=== PATIENT | female | born 1995 ===

== ENCOUNTER 2018-05-27 20:49 | Emergency (ER) | payer OTHER ==
[2018-05-27 21:06] VITALS: RESP 18; TEMP 98.3
--- NOTE | 2018-05-27 22:21 | ED PDOC ---
HPI: Chest Pain Time Seen by Provider: 05/27/18 22:16 Chief Complaint (Nursing): Chest Pain Chief Complaint (Provider): chest pain History Per: Patient History/Exam Limitations: no limitations Onset/Duration Of Symptoms: Days (2), Waxing/Waning Current Symptoms Are (Timing): Still Present Quality: "Pain", Other (pinching) Additional Complaint(s): 22 y/o female presents for evaluation of intermittent chest pain x 2 days. Patient describes pain in midsternal to left chest area, "pinching" when present. Denies fever, cough, congestion, nausea/vomiting, shortness of breath , palpitations, abdominal pain, recent travel, leg pain/swelling, OCP use. Past Medical History Reviewed: Historical Data, Nursing Documentation, Vital Signs Vital Signs: Last Vital Signs Temp 98.3 F 05/27/18 21:05 Pulse 82 05/27/18 21:05 Resp 18 05/27/18 21:05 BP 116/70 05/27/18 21:05 Pulse Ox 100 05/27/18 22:22 - Medical History PMH: No Chronic Diseases - Surgical History Surgical History: Appendectomy - Family History Family History: States: No Known Family Hx - Social History Current smoker - smoking cessation education provided: No Alcohol: None Drugs: Denies - Allergies Allergies/Adverse Reactions: Allergies Allergy/AdvReac Type Severity Reaction Status Date / Time No Known Allergies Allergy Verified 05/27/18 21:04 Review of Systems ROS Statement: Except As Marked, All Systems Reviewed And Found Negative Cardiovascular: Positive for: Chest Pain Physical Exam - Reviewed Nursing Documentation Reviewed: Yes Vital Signs Reviewed: Yes - Physical Exam Appears: Positive for: Well, Non-toxic, No Acute Distress Head Exam: Positive for: ATRAUMATIC, NORMAL INSPECTION, NORMOCEPHALIC Skin: Positive for: Normal Color Eye Exam: Positive for: Normal appearance ENT: Positive for: Normal ENT Inspection Cardiovascular/Chest: Positive for: Regular Rate, Rhythm. Negative for: Chest Non Tender (tender to palpate left anterior chest wall; no edema, ecchymosis, crepitus noted) Respiratory: Positive for: Normal Breath Sounds Gastrointestinal/Abdominal: Positive for: Normal Exam Back: Positive for: Normal Inspection Extremity: Positive for: Normal ROM Neurologic/Psych: Positive for: Alert, Oriented - Laboratory Results Result Diagrams: 05/27/18 23:43 05/27/18 23:43 - ECG ECG: Positive for: Viewed By Me (reviewed by ED attending) ECG Rhythm: Positive for: Sinus Rhythm O2 Sat by Pulse Oximetry: 100 - Radiology X-Ray: Viewed By Me X-Ray Interpretation: No Acute Disease - Progress ED Course And Treament: labs, ekg, chest xray, IV toradol On re-eval, patient resting comfortably; states she is feeling better Patient educated on findings, discharged with instructions to follow up PMD 2-3 days. REturn precautions given Disposition - Clinical Impression Clinical Impression: Atypical chest pain - Patient ED Disposition Is Patient to be Admitted: No Counseled Patient/Family Regarding: Studies Performed, Diagnosis, Need For Followup - Disposition Disposition: Routine/Home Disposition Time: 00:16 Condition: IMPROVED Instructions: Chest Pain Forms: [facility] ([place])
[2018-05-27 23:52] LABS: BASO % 0.5 % (0.0-2.0); EOS # 0.5 K/uL (0.0-0.7); EOS % 4.8 % (0.0-4.0); HEMOGLOBIN 12.4 g/dL (12.0-16.0); LYMPH % 31.7 % (20.0-40.0); MEAN CORPUSCULAR HEMOGLOBIN 30.2 pg (27.0-31.0); MEAN CORPUSCULAR HGB CONC 33.9 g/dL (33.0-37.0); MEAN PLATELET VOLUME 8.2 fl (7.2-11.7); MONO # 0.7 K/uL (0.0-0.8); MONO % 6.9 % (0.0-10.0); NEUT # 5.4 K/uL (1.8-7.0); NEUT % 56.1 % (50.0-75.0); NRBC % 0.1 % (0.0-0.0); RBC 4.11 Mil/uL (3.80-5.20); RED CELL DISTRIBUTION WIDTH 12.7 % (11.5-14.5); WHITE BLOOD COUNT 9.6 K/uL (4.8-10.8)
[2018-05-28] LABS: ALB/GLOB RATIO 1.3 (1.0-2.1); ALBUMIN 4.4 g/dL (3.5-5.0); ALT/SGPT 23 U/L (9-52); AST/SGOT 17 U/L (14-36); BLOOD UREA NITROGEN 14 mg/dl (7-17); CALCIUM 9.3 mg/dL (8.4-10.2); GFR AFRICAN-AMERICAN > 60; GFR NON-AFRICAN AMERICAN > 60
[2018-05-28 07:19] VITALS: BP 134/76; PULSE 102; O2SAT 98
--- NOTE | 2018-05-28 09:22 | RAD ---
Date of service: 05/27/2018 HISTORY: chest pain COMPARISON: No prior. TECHNIQUE: Chest PA and lateral FINDINGS: LUNGS: No active pulmonary disease. PLEURA: No significant pleural effusion identified. No pneumothorax apparent. CARDIOVASCULAR: Normal. OSSEOUS STRUCTURES: No significant abnormalities. VISUALIZED UPPER ABDOMEN: Normal. OTHER FINDINGS: None. IMPRESSION: No active disease.
== END 2018-05-28 00:55 | disposition home or self-care (01) ==
LOC: H.ER 20:49
DX: R07.9 Chest pain, unspecified (principal)
CPT/HCPCS: 71046; 80053; 84484; 85025; 96374; 99284; J1885

== ENCOUNTER 2018-06-28 09:10 | Emergency (ER) | payer OTHER ==
[2018-06-28 09:22] VITALS: BP 118/72; PULSE 88; RESP 20; TEMP 98.4; O2SAT 100; BMI 27.1
[2018-06-28 11:09] LABS: HEMOGLOBIN 12.3 g/dL (12.0-16.0); MEAN CELL VOLUME 88.9 fl (81.0-99.0); MEAN CORPUSCULAR HEMOGLOBIN 30.8 pg (27.0-31.0); MEAN CORPUSCULAR HGB CONC 34.6 g/dL (33.0-37.0); WHITE BLOOD COUNT 8.8 K/uL (4.8-10.8)
--- NOTE | 2018-06-28 11:29 | ED PDOC ---
HPI: Abdomen Time Seen by Provider: 06/28/18 09:29 Chief Complaint (Nursing): Abdominal Pain Chief Complaint (Provider): Suprapubic pain History Per: Patient History/Exam Limitations: no limitations Onset/Duration Of Symptoms: Days Location Of Pain/Discomfort: Suprapubic Quality Of Discomfort: "Pain" Associated Symptoms: denies: Fever, Chills, Nausea, Vomiting, Diarrhea, Back Pain, Urinary Symptoms Additional Complaint(s): 22 year old female presents to the ED for an evaluation of suprapubic pain onset for 1 week. Patient is and her last normal menstrual cycle was months ago. She took 3 tests done at home and want to confirm her with US in ED. Denies fever, chills, nausea, vomiting, urinary symptoms, vaginal bleeding or discharge. PMD: [place] Argu[place] Abnormal Vaginal Bleeding: No Past Medical History Reviewed: Historical Data, Nursing Documentation, Vital Signs Vital Signs: Last Vital Signs Temp 98.4 F 06/28/18 09:21 Pulse 88 06/28/18 09:21 Resp 20 06/28/18 09:21 BP 118/72 06/28/18 09:21 Pulse Ox 100 06/28/18 11:32 - Medical History PMH: No Chronic Diseases - Surgical History Surgical History: Appendectomy - Family History Family History: States: Unknown Family Hx - Social History Current smoker - smoking cessation education provided: No Alcohol: Social Drugs: Denies - Allergies Allergies/Adverse Reactions: Allergies Allergy/AdvReac Type Severity Reaction Status Date / Time No Known Allergies Allergy Verified 05/27/18 21:04 Review of Systems ROS Statement: Except As Marked, All Systems Reviewed And Found Negative Constitutional: Negative for: Fever, Chills Gastrointestinal: Positive for: Abdominal Pain. Negative for: Nausea, Vomiting , Diarrhea Genitourinary Female: Negative for: Dysuria, Frequency, Incontinence, Vaginal Discharge, Vaginal Bleeding Musculoskeletal: Negative for: Back Pain Physical Exam - Reviewed Nursing Documentation Reviewed: Yes Vital Signs Reviewed: Yes - Physical Exam Appears: Positive for: Non-toxic, No Acute Distress Head Exam: Positive for: ATRAUMATIC, NORMAL INSPECTION, NORMOCEPHALIC Skin: Positive for: Normal Color, Warm, Dry Eye Exam: Positive for: EOMI, Normal appearance, PERRL ENT: Positive for: Normal ENT Inspection Neck: Positive for: Normal, Painless ROM, Supple. Negative for: Decreased ROM Cardiovascular/Chest: Positive for: Regular Rate, Rhythm. Negative for: Murmur Respiratory: Positive for: Normal Breath Sounds. Negative for: Decreased Breath Sounds, Wheezing, Respiratory Distress Gastrointestinal/Abdominal: Positive for: Tenderness (palpable suprapubic ) Back: Positive for: Normal Inspection. Negative for: L CVA Tenderness, R CVA Tenderness Extremity: Positive for: Normal ROM. Negative for: Tenderness, Pedal Edema, Deformity Neurologic/Psych: Positive for: Alert, Oriented (x3). Negative for: Motor/ Sensory Deficits - Laboratory Results Result Diagrams: 06/28/18 10:56 06/28/18 10:56 - ECG O2 Sat by Pulse Oximetry: 100 (RA) Pulse Ox Interpretation: Normal - Radiology X-Ray: Read By Radiologist X-Ray Interpretation: No Acute Disease Medical Decision Making Medical Decision Making: Time: 952 Initial Impression: suprapubic pain Initial Plan: --BMP --BETA-HCG, Quantitative --ED Urine --Dipstick --CBC Stat --Transvaginal [US] --Reevaluation Scribe Attestation: Documented by Nery Villareal, acting as a scribe for Luann Rodriguez MD Provider Scribe Attestation: All medical record entries made by the Scribe were at my direction and personally dictated by me. I have reviewed the chart and agree that the record accurately reflects my personal performance of the history, physical exam, medical decision making, and the department course for this patient. I have also personally directed, reviewed, and agree with the discharge instructions and disposition. Disposition - Clinical Impression Clinical Impression: IUP (intrauterine ), incidental, Abdominal pain during intrauterine - Patient ED Disposition Is Patient to be Admitted: No Doctor Will See Patient In The: Office Counseled Patient/Family Regarding: Diagnosis, Need For Followup, Rx Given - Disposition Referrals: [facility] [Outside] [facility] [Outside] [facility] [Outside] Disposition: Routine/Home Disposition Time: 11:45 Condition: STABLE Instructions: How to Adapt to Physical Changes During , - The First Month Forms: [employer] ([place])
[2018-06-28 11:30] LABS: BLOOD UREA NITROGEN 10 mg/dl (7-17); GFR AFRICAN-AMERICAN > 60; GFR NON-AFRICAN AMERICAN > 60
[2018-06-28 11:31] LABS: CALCIUM 9.2 mg/dL (8.4-10.2)
--- NOTE | 2018-06-28 11:57 | US ---
Date of service: 06/28/2018 PROCEDURE: OB Pelvic Ultrasound HISTORY: pos home preg test; suprapubic pain x1week LMP: 05/26/2018 indicating gestational age of 4 weeks 5 days. COMPARISON: None available. FINDINGS: UTERUS: Gestational sac: Intrauterine gestation is identified with gestational sac with a mean sac diameter of 0.59 cm, yolk sac measuring 0.17 cm and pole with mean crown-rump length measurement of 0.16 cm. Based on mean CRL, estimated gestational age is less than 5 weeks estimated gestational age which is concordant with LMP derived dates. cardiac activity is not captured at this time. Janki-gestational hemorrhage: None. Date of delivery (Ultrasound estimated) : Similar to LMP derived dates. Uterus measures 6.9 x 4.2 x 4.9 cm. Normal in size and appearance. CERVIX: Measures 3.0 cm. Closed internal os. No cervical mass or cyst seen. RIGHT OVARY: Measures 4.2 x 4.5 x 4.5 cm. No mass lesion. Normal flow. Corpus luteum cyst is apparent measuring 2.6 x 2.9 x 3.1 cm slightly enlarging the right ovary. LEFT OVARY: Measures 2.6 x 1.8 x 2.1 cm. No solid mass. Normal flow. FREE FLUID: None. OTHER FINDINGS: None. IMPRESSION: A single intrauterine gestation is identified and a very early stage of the first-trimester with barely visible pole indicating estimated gestational age of under 5 weeks which is concordant with menstrual dates. demise is not excluded. No definite ectopic gestation. Further clinical correlation is advised as well as follow-up ultrasound in 1 week as viable intrauterine gestation may be present.
== END 2018-06-28 13:00 | disposition home or self-care (01) ==
LOC: H.ER 09:10
DX: O26.891 Other specified pregnancy related conditions, first trimester (principal); Z3A.01 Less than 8 weeks gestation of pregnancy

== ENCOUNTER 2018-09-25 16:58 | Emergency (ER) | payer OTHER ==
[2018-09-25 16:59] VITALS: BMI 27.1
[2018-09-25 17:18] VITALS: BP 110/66; PULSE 94; RESP 16; TEMP 98.8; O2SAT 100
[2018-09-25] MEDS ORDERED: Sodium Chloride 0.9% 1,000 ML IV STA (18:09)
--- NOTE | 2018-09-25 18:35 | ED PDOC ---
HPI: Abdomen Time Seen by Provider: 09/25/18 17:52 Chief Complaint (Nursing): GI Problem Chief Complaint (Provider): GI Problem History Per: Patient History/Exam Limitations: no limitations Onset/Duration Of Symptoms: Days (x2 days ) Current Symptoms Are (Timing): Still Present Location Of Pain/Discomfort: RLQ Associated Symptoms: Nausea. denies: Fever, Vomiting, Chest Pain Additional Complaint(s): Patient is a 22 year old female who complains of nausea and right lower quadrant pain that radiates to lower back for past x2 days. Patient is x17 weeks with a twin gestation. This is patient's first , (+) prior care and US evaluation. She has taken no medications prior to arrival. Otherwis e: (-) vomiting, (-) diarrhea, (-) fever, (-) melena, (-) urinary symptoms, (-) vaginal bleeding, (-) vaginal discharge. Has a history of prior abdominal surgery- Appendectomy. PMD: out of [place] Last menstrual period: May 26 Past Medical History Reviewed: Historical Data, Nursing Documentation, Vital Signs Vital Signs: Last Vital Signs Temp 98.8 F 09/25/18 17:16 Pulse 94 H 09/25/18 17:16 Resp 16 09/25/18 17:16 BP 110/66 09/25/18 17:16 Pulse Ox 100 09/25/18 17:16 - Medical History PMH: No Chronic Diseases - Surgical History Surgical History: Appendectomy - Family History Family History: States: Unknown Family Hx - Allergies Allergies/Adverse Reactions: Allergies Allergy/AdvReac Type Severity Reaction Status Date / Time No Known Allergies Allergy Verified 09/25/18 17:15 Review of Systems ROS Statement: Except As Marked, All Systems Reviewed And Found Negative Constitutional: Negative for: Fever Cardiovascular: Negative for: Chest Pain Gastrointestinal: Positive for: Nausea, Abdominal Pain. Negative for: Vomiting Genitourinary Female: Negative for: Vaginal Discharge, Vaginal Bleeding Physical Exam - Reviewed Nursing Documentation Reviewed: Yes Vital Signs Reviewed: Yes - Physical Exam Comments: GENERAL APPEARANCE: Patient is awake, alert, oriented x 3, in no distress and resting comfortably. SKIN: Warm, dry; (-) cyanosis. ENMT: Mucous membranes moist. NECK: Supple, FROM CHEST AND RESPIRATORY: (-) rales, (-) rhonchi, (-) wheezes; breath sounds equal bilaterally. Respirations even and nonlabored. HEART AND CARDIOVASCULAR: (-) irregularity ABDOMEN AND GI: Soft (-) distention. Bowel sounds active x4;(+) right lower quadrant tenderness, (-) guarding, (-) rebound, (-) palpable masses, (-) CVA tenderness. BACK: (-) midline tenderness (-)CVA tenderness (+) right paralumbar tenderness EXTREMITIES: (-) deformity, (-) edema, (+) distal pulses. NEURO AND PSYCH: Mental status as above; (-) focal findings. Gait: steady. Speech: clear. (-) facial asymmetry - Laboratory Results Result Diagrams: 09/25/18 21:12 09/25/18 21:12 Urine POC: Positive Urine dip results: Negative for: Leukocyte Esterase, Blood, Nitrate, Ketones, Glucose, Bilirubin, Protein - ECG O2 Sat by Pulse Oximetry: 100 (RA) Pulse Ox Interpretation: Normal Medical Decision Making Medical Decision Making: Time:18:10 Initial Impression: Nausea, abdominal pain in Plan: --CMP --Beta HCG --Ed urine --Ed urine dipstick --Cbc with differential --Sodium chloride 1,000 ml --Tylenol 975 mg PO --Zofran 4mg po --OB , limited US 1835 Udip reviewed and unremarkable. Upreg: positive. 1946 Case endorsed to Barry Cherry PA-C pending lab and U/S results, re-evaluation, and further disposition. -- Scribe Attestation: Documented by Eligio Humphrey, acting as a scribe for Breanna Villanueva. Provider Scribe Attestation: All medical record entries made by the Scribe were at my direction and personally dictated by me. I have reviewed the chart and agree that the record accurately reflects my personal performance of the history, physical exam, medical decision making, and the department course for this patient. I have also personally directed, reviewed, and agree with the discharge instructions and disposition. Disposition - Clinical Impression Clinical Impression: Abdominal pain during intrauterine - Patient ED Disposition Is Patient to be Admitted: Transfer of Care (Case endorsed to Barry Cherry PA-C pending lab and U/S results, re-evaluation, and further disposition.) - Disposition Disposition: Transfer of Care (Case endorsed to Barry Cherry PA-C pending lab and U/S results, re-evaluation, and further disposition.) Disposition Time: 19:45 Condition: FAIR - POA Present On Arrival: None
--- NOTE | 2018-09-25 21:06 | ED PDOC ---
- Laboratory Results Result Diagrams: 09/25/18 21:12 09/25/18 21:12 Urine POC: Positive - ECG O2 Sat by Pulse Oximetry: 100 (RA) - Progress ED Course And Treament: CLINICAL HISTORY: RLQ pain, twin gestation ~18 wks. TECHNIQUE: Realtime sonographic images were obtained in multiple projections. COMMENTS: There is a twin diamniotic monochorionic intrauterine gestation. Fetus A: Presentation is cephalic. The BPD measures 4.1 cm corresponds to a gestational age of 18 weeks 2 days. The AC measures 12.9 cm corresponds to a gestational age of 18 weeks 3 days. The HC measures 14.5 cm corresponds to a gestational age of 17 weeks 5 days. The FL measures 2.5 cm corresponds to a gestational age of 17 weeks 5 days. The composite age is 18 weeks 0 days. heart motion was observed. The heart rate is 156 beats per minute. The placenta is posterior and free of the cervical os. Fetus B: Presentation is breech. The BPD measures 4 cm corresponds to a gestational age of 18 weeks 1 day. The AC measures 12.4 cm corresponds to a gestational age of 18 weeks 0 days. The HC measures 14.3 cm corresponds to a gestational age of 17 weeks 4 days. The FL measures 2.4 cm corresponds to a gestational age of 17 weeks 3 days. The composite age is 17 weeks 5 days. heart motion was observed. The heart rate is 148 beats per minute. The placenta is posterior and free of the cervical os. The cervical length is 3 cm. IMPRESSION: Twin, live, intrauterine gestation with a composite gestational age of 18 weeks 0 days for fetus A and 17 weeks 5 days for fetus B. On re-eval, patient resting comfortably; states she is feeling better. Tolerating PO Repeat accucheck 92 after food/juice given. Patient states she has not eaten anything since 1pm. Stressed importance of nutrition for twin Patient discharged with instructions to follow up with Refractory Worker within 2-3 days Return precautions given Disposition - Clinical Impression Clinical Impression: Abdominal pain during intrauterine - POA Present On Arrival: None - Disposition Disposition: Routine/Home Disposition Time: 21:19 Condition: IMPROVED Instructions: Round Ligament Pain
[2018-09-25 21:16] LABS: BASO % 0.3 % (0.0-2.0); EOS # 0.2 K/uL (0.0-0.7); EOS % 1.7 % (0.0-4.0); HEMOGLOBIN 11.2 g/dL (12.0-16.0); LYMPH # 1.6 K/uL (1.0-4.3); LYMPH % 18.3 % (20.0-40.0); MEAN CELL VOLUME 89.8 fl (81.0-99.0); MEAN CORPUSCULAR HEMOGLOBIN 30.2 pg (27.0-31.0); MEAN CORPUSCULAR HGB CONC 33.7 g/dL (33.0-37.0); MEAN PLATELET VOLUME 8.6 fl (7.2-11.7); MONO # 0.7 K/uL (0.0-0.8); MONO % 7.6 % (0.0-10.0); NEUT # 6.4 K/uL (1.8-7.0); NEUT % 72.1 % (50.0-75.0); RBC 3.72 Mil/uL (3.80-5.20); RED CELL DISTRIBUTION WIDTH 13.8 % (11.5-14.5); WHITE BLOOD COUNT 8.9 K/uL (4.8-10.8)
[2018-09-25 21:28] LABS: ALB/GLOB RATIO 1.1 (1.0-2.1); ALBUMIN 3.9 g/dL (3.5-5.0); ALT/SGPT 13 U/L (9-52); AST/SGOT 19 U/L (14-36); BLOOD UREA NITROGEN 10 mg/dl (7-17); GFR NON-AFRICAN AMERICAN > 60
--- NOTE | 2018-09-26 14:59 | US ---
Date of service: 09/25/2018 PROCEDURE: HISTORY: RLQ pain, twin gestation 18 wks COMPARISON: 06/28/2018 TECHNIQUE: Standard protocol for this study/examination. FINDINGS: BABY A CEPHALIC presentation. POSTERIOR placenta. No evidence of abruption or previa Gestational age derived from LMP 17 WEEKS 3 DAYS. BROOK 03/02/2019. Gestational age derived from the following biometric parameters 18 weeks. BROOK 02/26/2019. Biparietal diameter 4.06 cm Head circumference 14.51 cm Abdominal circumference 12.92 cm Femur length 2.53 cm Estimated weight 222.2 g Calculated cardiac rate 156 beats per min. BABY B Breech presentation. Posterior placenta. No evidence of abruption or previa Gestational age derived from LMP 17 weeks 3 days. BROOK 03/02/2019.. Gestational age derived from the following biometric parameters 17 weeks 5 days. BROOK 12 19. Biparietal diameter 4.02 cm Head circumference 13.34 cm Abdominal circumference 12.43 cm Femur length 2.44 cm Estimated weight 207.3 g Calculated cardiac rate 148 beats per min. Closed cervix measuring 3.04 cm IMPRESSION: Bi-amnionic, monochorionic twin intrauterine gestations. Gestational concordance documented. Concordant findings (preliminary report) provided by [facility].
== END 2018-09-25 21:49 | disposition home or self-care (01) ==
LOC: H.ER 16:58
DX: O30.002 Twin pregnancy, unspecified number of placenta and unspecified number of amniotic sacs, second trimester (principal); Z3A.18 18 weeks gestation of pregnancy
CPT/HCPCS: 76815; 80053; 81025; 82948; 84702; 85025; 99284; J7030